=== PATIENT | female | born 1960 | race Caucasian/White ===

== ENCOUNTER 2016-06-02 13:37 | Day surgery (SDC) | payer OTHER ==
[~2016-06-02] VITALS: Ht 165.1 cm; Wt 108.9 kg
[~2016-06-02 13:37] MED LIST: CENTRUM SILVER1 EAC3 PO; IRON325 M1 PO; METRO GEL 1%60 GM TP; PLAQUENIL200 MG PO; PRILOSEC OTC20 MG PO; PROZAC20 MG PO; ULTRAM ER200 MG PO; VITAMIN D-32000 UNI2 PO
[2016-06-02 15:07] VITALS: BP 138/80
[2016-06-02 21:20] VITALS: BP 140/64
[2016-06-02 21:55] VITALS: BP 129/59
== END 2016-06-02 21:55 | disposition home or self-care (01) ==
LOC: SDC 13:37
DX: M23.221 Derangement of posterior horn of medial meniscus due to old tear or injury, right knee (principal); M79.7 Fibromyalgia
CPT/HCPCS: J0171; J1100; J1170; J1885; J2250; J2405; J3010